=== PATIENT | female | born 1935 | race Caucasian/White ===

== ENCOUNTER 2018-10-30 00:14 | Inpatient (IN) ==
--- NOTE | 2018-10-30 04:44 | Internal Med History&Physical ---
<Orlando Montanez T - Last Filed: 10/30/18 06:04> Date of Encounter: 10/30/18 Time of Encounter: 04:42 Internal Medicine - H&P: HPI History of present illness: Ms. Tomlin is a 83 year old female presenting to [facility] ED with fall. She was changing her shoes yesterday morning when she fell off her breathing or pending side of her head [facility]. She did not lose consciousness or experience confusion. Patient endorses fever, chills/night sweats, vomiting 3 over the previous 2 days. Patient denies chest pain, palpitations, shortness of breath, pleuritic chest pain, abdominal pain, changes in stooling, changes in urination. At [facility] ED CBC showed elevated AST of 1083, elevated BALT of 604, alkaline phosphatase of 332, total bilirubin of 2.3. Urinalysis was negative for pathology. Flu swab was negative. Troponins were elevated at 0.130. EKG showed A. fib no ST changes CT abdomen/pelvis showed multiple tiny hypodensities in liver could be due to arterioportal shuntsMRI was recommended to exclude metastatic lesions. Colonic diverticulosis was also seen. CT head showed scalp soft tissue hematoma and laceration is no acute intracranial abnormality. CT of C-spine showed no acute cervical pathology. Vitals upon presentation were under 1.8F, pulse 117, respiratory rate 22, BP 155/83, O2 sat 95%. Lactic acid was 2.8. Patient has history of CVA, A. fib, cholecystectomy, appendectomy, GERD, hypertension, hyperlipidemia, lumbar spinal stenosis, total abdominal h ysterectomy, cholecystectomy. Patient is a nonsmoker and does not drink. Past Med Surg Social Fam HX - Past Medical History Medical history: atrial fibrillation, CVA - Past Surgical History Surgical History: appendectomy, cholecystectomy, hysterectomy Additional surgical history: lumpectomy,thrombectomy - Social History Smoking Status: Former smoker Alcohol use: none Drug use: none - Family History Mother History Unknown: Yes Internal Medicine - H&P: Meds Aspirin [Lo-Dose Aspirin EC] 81 mg PO DAILY 10/30/18 [History] Atorvastatin [Lipitor] 80 mg PO HS 10/30/18 [History] Losartan [Cozaar] 25 mg PO DAILY 10/30/18 [History] Magnesium Oxide [Magnesium] 400 mg PO DAILY 10/30/18 [History] Metoprolol XL (24 HR) Succ [Toprol XL] 50 mg PO DAILY 10/30/18 [History] Omeprazole [PriLOSEC] 20 mg PO DAILY 10/30/18 [History] RX: Diltiazem [Cardizem] 30 mg PO TID 10/30/18 [History] RX: Nitrofurantoin (BID) [Macrobid] 100 mg PO DAILY 10/30/18 [History] Timolol Maleate 0.5% 1 drop BOTH EYES BID 10/30/18 [History] Warfarin [Coumadin] 3 mg PO DAILY 10/30/18 [History] Allergy/AdvReac Type Severity Reaction Status Date / Time Sulfa (Sulfonamide Allergy Itching Verified 10/30/18 02:41 Antibiotics) All Systems PM: A 10-system review of systems was performed and is negative for pertinent findings except as documented above in the HPI. - Constitutional Constitutional: chills, fever(s), falls, lethargy, malaise, night sweats - Cardiovascular Cardiovascular ROS IM: no chest pain, no palpitations - Respiratory Respiratory: no cough, no dyspnea - Gastrointestinal Gastrointestinal: vomiting (3 times in the past few days), no abdominal pain, no constipation, no cramping, no diarrhea, no hematemesis, no hematochezia, no melena - Genitourinary Genitourinary: no dysuria, no urinary frequency, no urinary hesitancy, no urin maranda incontinence - Musculoskeletal Musculoskeletal ROS IM: no myalgias - Neurological Neurological ROS: no focal weakness, no headache(s) - Constitutional Vitals: Temp Pulse Resp BP Pulse Ox 100.3 F H 87 16 130/66 93 10/30/18 04:26 10/30/18 04:26 10/30/18 04:26 10/30/18 04:26 10/30/18 04:26 General appearance: Present: cooperative, A&O X 3, no acute distress, answers questions appropriately Exam: . - Head Head exam: Present: atraumatic, normal inspection - Expanded Head Exam Head exam expanded: Present: laceration (on left side of head) - Neck Neck exam general surgery: Present: supple, trachea midline - Respiratory Respiratory exam: Present: CTAB - Cardiovascular Cardiovascular exam: Present: irregular rhythm, +S1, +S2 Additional comments: Tachycardia with irregular rhythm. Telemetry shows A. fib. - GI/Abdominal GI/Abdominal exam: Present: normal bowel sounds, soft. Absent: distended, tenderness, no peritoneal signs - Extremities Exam Extremities exam: Present: warm, radial pulses palpable and symmetrical. Absent: tenderness - Neurological Exam Neurological exam: Present: alert, oriented X3, no focal deficits - Psychiatric Psychiatric exam: Present: normal affect, normal mood - Skin Skin exam: Present: dry, intact, warm - Assessment and plan (1) Acute hepatitis Current Visit: Yes Status: Acute Assessment and plan: 83-year-old female presenting with fall. Labs that [facility] showed elevated LFTs with AST of 1083, ALC of 604, alkaline phosphatase of 332, total bilirubin of 2.3. Considering infectious or drug-related hepatitis. - Ordered hepatic panel - Consult to GI (2) Sepsis Current Visit: Yes Status: Acute Assessment and plan: SIRS positive - R/O sepsis. Patient presented with pulse of 117, respiratory rate of 22, BP 155/83, and lactic acid 2.8. - Trend lactic acid. - White blood cell count was normal. Morning labs ordered continue to trend - Trending vitals Qualifiers: Sepsis type: sepsis due to unspecified organism Qualified Code(s): A41.9 - Sepsis, unspecified organism (3) Afib Current Visit: Yes Status: Acute Assessment and plan: Patient currently in A. fib, asymptomatic. - Continue home metoprolol, warfarin, Cardizem. - Consult cardiology for management. Qualifiers: Qualified Code(s): I48.91 - Unspecified atrial fibrillation (4) NSTEMI (non-ST elevated myocardial infarction) Current Visit: Yes Status: Acute Assessment and plan: She presents with elevated troponins negative EKG and A. fib. Considering an STEMI. - Consult cardiology. - BMP ordered. - Trend troponins. (5) DVT prophylaxis Current Visit: Yes Status: Acute Assessment and plan: Patient on warfarin. - Time Spent With Patient Total time spent is greater than 50% in coordination of care (as documented) at patient's floor/unit and/or counseling patient: <Sebastian Hudson - Last Filed: 10/30/18 06:51> Date of Encounter: 10/30/18 Internal Medicine - H&P: HPI History of present illness: Ms. Tomlin is a 83 year old female All Systems PM: A 10-system review of systems was performed and is negative for pertinent findings except as documented above in the HPI. - Constitutional Vitals: Temp Pulse Resp BP Pulse Ox 100.3 F H 87 16 130/66 93 10/30/18 04:26 10/30/18 04:26 10/30/18 04:26 10/30/18 04:26 10/30/18 04:26 Internal Med - H&P Results - Labs Labs: Cardiac Enzymes 10/30/18 Range/Units 05:38 Troponin I 0.13 H* (< 0.04) ng/mL - Time Spent With Patient Total time spent is greater than 50% in coordination of care (as documented) at patient's floor/unit and/or counseling patient: - Attending Attestation I examined this patient and my medical decision-making was reviewed with the Resident Physician. I agree with the documented findings, disposition and treatment plan as described except to the extent set forth below.
[2018-10-30] MEDS ORDERED: Acetaminophen 325 MG TABLET PO PRN (04:52)
[2018-10-30] MEDS ORDERED: Naloxone 0.4 MG/ML INJ IVP PRN (04:55)
[2018-10-30] MEDS: 0.9 % Sodium Chloride 1,000 ML IVC SCH ×2 (05:58→22:55)
[2018-10-30] MEDS: Metoprolol XL (24 HR) Succ 50 MG TAB.ER.24H PO SCH (05:58)
[2018-10-30 06:53] LABS: BUN/Creatinine Ratio 21 (6-26); Blood Urea Nitrogen 15 mg/dL (8-23); Calcium 8.6 mg/dL (8.6-10.3); Carbon Dioxide 19 mEq/L (23-29); Chloride 107 mEq/L (98-107); Glucose 152 mg/dL (70-105); Osmolality,Calculated 286 (280-300); Potassium 3.6 mEq/L (3.5-5.1); Sodium 136 mEq/L (136-145); eGFR For Non-African Americans > 60 (> 60)
[2018-10-30 07:34] LABS: Basophils % 0.1 %; Hemoglobin 11.4 g/dL (11.5-15.4); Immature Granulocytes % 0.6 % (0-4); Lymphocytes % 11.4 %; Mean Corpuscular HGB Conc 33.5 g/dL (31.6-35.5); Mean Corpuscular Hemoglobin 30.7 pg (28.0-33.3); Mean Corpuscular Volume 91.6 fL (83.0-100.0); Monocytes # 0.9 K/mcL (0.0-1.3); Monocytes % 10.1 %; Platelet Count 176 K/mcL (140-400); Red Blood Count 3.71 M/mcL (3.82-4.97); Red Cell Distribution Width 14.4 % (11.5-14.5); Segmented Neutrophils % 77.8 %
[2018-10-30 09:43] LABS: INR 3.5; Prothrombin Time 39.2 Seconds (9.4-12.1)
--- NOTE | 2018-10-30 10:22 | Cardiology Consult Note ---
<Jung Sarabia - Last Filed: 10/30/18 10:17> Date of Encounter: 10/30/18 Time of Encounter: 10:17 Assessment and Plan (1) Elevated troponin Current Visit: Yes Status: Acute Patient had elevated troponin 0.13 and 0.13. This is in the setting of sepsis, with fever secondary to acute hepatitis of unknown etiology ECG shows rate of 98, atrial fibrillation, without ST elevation, depression, no previous one to compare. Patient denies chest pain Patient has stress test [facility] but unclear when. Plan: echocardiogram, request cardiology records from [facility], asa, statin, bblocker likely this is demand ischemia 2nd to sepsis, infection. Patient has adynamic troponin and no chest pain. (2) Acute hepatitis Current Visit: Yes Status: Acute as per primary (3) Sepsis Current Visit: Yes Status: Acute as per primary Qualifiers: Sepsis type: sepsis due to unspecified organism Qualified Code(s): A41.9 - Sepsis, unspecified organism (4) Afib Current Visit: Yes Status: Acute chronic afib continue metoprolol and coumadin Qualifiers: Atrial fibrillation type: chronic Qualified Code(s): I48.2 - Chronic atrial fibrillation Discussion w patient/family: The assessment and plan as outlined above was discussed with the patient and/or family members who expressed understanding and agreement. All questions were answered. Thank you for involving us in the care of your patient. Please call with any questions. History of Present Illness Consult date: 10/30/18 Consult reason: Elevated troponin Chief complaint: Fall History of present illness: Ms. Tomlin is a 83 year old female with history of atrial fibrillation on Coumadin, CVA, hypertension, hyperlipidemia presents with chief complaint of fall. Patient was changing her seizure history and trying to sit on her bed when she had a mechanical fall, did not loose consciousness and hit her left scalp on the hardwood floor. She did not lose consciousness and denied chest pain, palpitations, shortness of breath, abdominal pain. She reports couple days before her fall she has had nausea, vomiting 3. This happened after her Ceftin gave her pink liquid for upset stomach but she is unclear what this was. At [facility] patient was found to have elevated AST and ALTs alkaline phosphatase 80 and bilirubin. Cardiology was consulted for elevated troponin. Patient denies history of coronary disease. She has had stress test and echocardiogram at [facility] which have been normal. She currently denies chest pain. Furthermore she had a CT abdomen pelvis which showed multiple tiny hypodensities in the liver. CT of the head showed a scalp soft tissue hematoma and laceration without any acute intracranial abnormality. Past Med Surg Social Fam HX - Past Medical History Medical history: atrial fibrillation, CVA - Past Surgical History Surgical History: appendectomy, cholecystectomy, hysterectomy Additional surgical history: lumpectomy,thrombectomy - Social History Smoking Status: Former smoker Alcohol use: none Drug use: none - Family History Mother History Unknown: Yes Medications and Allergies Aspirin [Lo-Dose Aspirin EC] 81 mg PO DAILY 10/30/18 [History] Atorvastatin [Lipitor] 80 mg PO HS 10/30/18 [History] Losartan [Cozaar] 25 mg PO DAILY 10/30/18 [History] Magnesium Oxide [Magnesium] 400 mg PO DAILY 10/30/18 [History] Metoprolol XL (24 HR) Succ [Toprol XL] 50 mg PO DAILY 10/30/18 [History] Omeprazole [PriLOSEC] 20 mg PO DAILY 10/30/18 [History] RX: Diltiazem [Cardizem] 30 mg PO TID 10/30/18 [History] RX: Nitrofurantoin (BID) [Macrobid] 100 mg PO DAILY 10/30/18 [History] Timolol Maleate 0.5% 1 drop BOTH EYES BID 10/30/18 [History] Warfarin [Coumadin] 3 mg PO DAILY 10/30/18 [History] Allergy/AdvReac Type Severity Reaction Status Date / Time Sulfa (Sulfonamide Allergy Itching Verified 10/30/18 02:41 Antibiotics) All Systems Review: The remainder of the systems were reviewed and are negative Review of Systems: Constitutional: Reports fever, chills HEENT: Reports headache, trauma, denies blurry vision, eye discharge, ear pain, ear discharge neck pain, sore throat, rhinorrhea Heart: Denies chest pain palpitations, LE edema Lungs: Denies shortness of breath cough Abdomen: Reports abdominal pain nausea vomiting denies diarrhea MSK: Denies back pain, joint pain and reports Kidney: Denies dysuria, hematuria Skin: Denies rash, ulcers Neuro: Denies numbness and tingling Psych: denies anxiety, depression Physical Examination Vital Signs, Last 4 Hours Temp Pulse Resp BP Pulse Ox 10/30/18 07:29 99.1 F 112 17 117/73 94 General: Conversant, No Apparent Distress HEENT: Atraumatic, Normocephaly, Mucus Membranes Moist Neck: No JVD, Normal carotid pulses Cardiac: Other (Irregular rhythm) Lungs: Normal Breath Sounds, No Wheeze, Rales, Rhonchi Neuro: Alert and responsive, No focal deficits noted Abdomen: Soft, Non-Tender Skin: No rashes noted on visualized skin Musculoskeletal: No Chest Wall Tenderness Extremities: No Clubbing, No Cyanosis, No Edema, Normal Pulses Results 10/30/18 06:36 10/30/18 05:38 Lab Results 10/30/18 10/30/18 10/30/18 05:38 05:38 05:38 WBC Hgb Hct Plt Count INR Sodium 136 Potassium 3.6 Chloride 107 Carbon Dioxide 19 L BUN 15 Creatinine 0.72 Glucose 152 H Calcium 8.6 Troponin I 0.13 H* B-Natriuretic Peptide 455 H 10/30/18 10/30/18 10/30/18 06:36 09:20 09:20 WBC 9.0 Hgb 11.4 L Hct 34.0 L Plt Count 176 INR 3.5 Sodium Potassium Chloride Carbon Dioxide BUN Creatinine Glucose Calcium Troponin I 0.13 H* B-Natriuretic Peptide Consult Discharge Plan - Plan Referrals: NONE,PCP [Primary Care Provider] - <Antonio Doll - Last Filed: 10/30/18 12:46> Date of Encounter: 10/30/18 - Attending Attestation I examined this patient and my medical decision-making was reviewed with the Resident Physician. I agree with the documented findings, disposition and treatment plan as described except to the extent set forth below. Mildy abormal troponin in setting of possible infection. Doubt ACS. Would check echo with further w/u based on results. Assessment and Plan Discussion w patient/family: The assessment and plan as outlined above was discussed with the patient and/or family members who expressed understanding and agreement. All questions were answered. Thank you for involving us in the care of your patient. Please call with any questions. History of Present Illness History of present illness: Ms. Tomlin is a 83 year old female All Systems Review: The remainder of the systems were reviewed and are negative Physical Examination Vital Signs, Last 4 Hours Temp Pulse Resp BP Pulse Ox 10/30/18 11:29 98.9 F 75 19 116/73 95 Results 10/30/18 06:36 10/30/18 05:38 Lab Results 10/30/18 10/30/18 10/30/18 05:38 05:38 05:38 WBC Hgb Hct Plt Count INR Sodium 136 Potassium 3.6 Chloride 107 Carbon Dioxide 19 L BUN 15 Creatinine 0.72 Glucose 152 H Calcium 8.6 Troponin I 0.13 H* B-Natriuretic Peptide 455 H 10/30/18 10/30/18 10/30/18 06:36 09:20 09:20 WBC 9.0 Hgb 11.4 L Hct 34.0 L Plt Count 176 INR 3.5 Sodium Potassium Chloride Carbon Dioxide BUN Creatinine Glucose Calcium Troponin I 0.13 H* B-Natriuretic Peptide
[2018-10-30 10:32] LABS: Hepatitis A Antibody IgM Nonreactive (Nonreactive); Hepatitis B Core IgM Nonreactive (Nonreactive); Hepatitis B Surface Antigen Nonreactive (Nonreactive); Hepatitis C Virus Antibody Nonreactive (Nonreactive)
--- NOTE | 2018-10-30 14:27 | Gastroenterology Consult Note ---
<Andreina Mike - Last Filed: 10/30/18 14:22> Date of Encounter: 10/30/18 Time of Encounter: 09:50 - Time Spent With Patient Total time spent is greater than 50% in coordination of care (as documented) at patient's floor/unit and/or counseling patient: GI History of Present Illness - Data of Consult Patient: new to practice Consult date: 10/30/18 Requesting Physician: Sebastian Hudson MD - Consult Narrative Reason for consult: elevated lfts History of present illness: Ms. Tomlin is a 83 year old female With past medical history of A. fib and CVA, cholecystectomy, appendectomy, GERD, hypertension, hyperlipidemia, lumbar spinal stenosis, total abdominal hysterectomy. She presented to [facility] ED with fall. Patient endorses fever, chills/night sweats, vomiting 3 over the previous 2 days. Patient denies chest pain, palpitations, shortness of breath, pleuritic chest pain, abdominal pain, changes in stooling, changes in urination. At [facility] ED CBC showed elevated AST of 1083, elevated BALT of 604, alkaline phosphatase of 332, total bilirubin of 2.3. Urinalysis was negative for pathology. Flu swab was negative. Troponins were elevated at 0.130. EKG showed A. fib no ST changes. CT abdomen/pelvis showed multiple tiny hypodensities in liver could be due to arterioportal shunts-MRI was recommended to exclude metastatic lesions. Colonic diverticulosis was also seen. CT head showed scalp soft tissue hematoma and laceration is no acute intracranial abnormality. CT of C-spine showed no acute cervical pathology. Lactic acid was 2.8. Patient is a nonsmoker and does not drink. She denies any personal or family history of liver diseaes. She denies and diarrhea, bloody or black stools. She does admit to chronic constipation. Assessments: 1. transaminitis 2. liver lesion 3. sepsis 4. fall at home Plan: Pt presented with nausea, vomiting fever and fall at home. Lactic acid was 2.8, liver enzymes were elevated. CT abdomen showed multiple tiny hypodensities in liver could be due to arterioportal shunts. Due to her infectious presentation she needs MrI to rule out cholangitis/liver abcess. Past Med Surg Social Fam HX - Past Medical History Medical history: atrial fibrillation, CVA - Past Surgical History Surgical History: appendectomy, cholecystectomy, hysterectomy Additional surgical history: lumpectomy,thrombectomy - Social History Smoking Status: Former smoker Alcohol use: none Drug use: none - Family History Mother History Unknown: Yes Review of Systems: GI: as per [place] GENERAL: fever and chills EYES: denies yellow discoloration ENT: denies pain with swallowing or difficulty swallowing CARDIO: denies chest pain, palpitations RESP: No Shortness of breath with exertion : denies change in color of urine NEURO: weakness HEME: Denies any bruising MS: denies joint pain, joint swelling or back pain. DERM: denies rash or itching PSYCH: Denies history of anxiety or depression - Constitutional Vitals: Temp Pulse Resp BP Pulse Ox 98.9 F 75 19 116/73 95 10/30/18 11:29 10/30/18 11:29 10/30/18 11:29 10/30/18 11:29 10/30/18 11:29 Exam: CONSTITUTIONAL:alert, no acute distress.HEAD:normocephalic.EYES:no jaundice.NECK:no obvious swelling.HEART:regular rate and rhythm, no murmurs.LUNGS:bilateral good air entry.ABDOMEN:non distended, soft, tender epigastric area, no organomegaly.RECTAL EXAM:Deferred.EXTREMITIES:no clubbing, cyanosis or edema.SKIN:no stigmata of chronic liver disease.NEUROLOGIC:no obvious focal defect. Results - Labs CBC & Chem 7: 10/30/18 06:36 10/30/18 05:38 Labs: Last Result Calcium 8.6 mg/dL (8.6-10.3) 10/30/18 05:38 Troponin I 0.13 ng/mL (< 0.04) H* 10/30/18 09:20 Entire Visit Hgb 11.4 g/dL (11.5-15.4) L 10/30/18 06:36 Hct 34.0 % (35.3-44.9) L 10/30/18 06:36 PT 39.2 Seconds (9.4-12.1) H 10/30/18 09:20 - ABG ABG results: PT/INR, D-dimer PT 39.2 Seconds (9.4-12.1) H 10/30/18 09:20 - Impressions Impressions Chest X-Ray 10/30/18 05:48 IMPRESSION: Left basilar atelectasis. D/ / Sara Ladd MD / Sara Ladd MD Interpreting Provider: Sara Ladd MD Consult Discharge Plan - Plan Referrals: NONE,PCP [Primary Care Provider] - <Norma Perez - Last Filed: 10/30/18 20:56> Date of Encounter: 10/30/18 Time of Encounter: 18:00 - Time Spent With Patient Total time spent is greater than 50% in coordination of care (as documented) at patient's floor/unit and/or counseling patient: GI History of Present Illness - Data of Consult Requesting Physician: Sebastian Hudson MD - Consult Narrative History of present illness: Ms. Tomlin is a 83 year old female - Constitutional Vitals: Temp Pulse Resp BP Pulse Ox 98.5 F 72 16 98/60 94 10/30/18 20:52 10/30/18 20:52 10/30/18 20:52 10/30/18 20:52 10/30/18 20:52 Results - Labs CBC & Chem 7: 10/30/18 06:36 10/30/18 05:38 Labs: Last Result Calcium 8.6 mg/dL (8.6-10.3) 10/30/18 05:38 Troponin I 0.07 ng/mL (< 0.04) H* 10/30/18 17:03 Entire Visit Hgb 11.4 g/dL (11.5-15.4) L 10/30/18 06:36 Hct 34.0 % (35.3-44.9) L 10/30/18 06:36 PT 39.2 Seconds (9.4-12.1) H 10/30/18 09:20 Total Bilirubin 1.0 mg/dL (0.3-1.0) 10/30/18 15:02 AST 352 Units/L (13-39) H 10/30/18 15:02 ALT 367 Units/L (7-52) H 10/30/18 15:02 Amylase 23 Units/L (29-103) L 10/30/18 15:02 Lipase 66 Units/L (11-82) 10/30/18 15:02 - ABG ABG results: PT/INR, D-dimer PT 39.2 Seconds (9.4-12.1) H 10/30/18 09:20 - Impressions Impressions Chest X-Ray 10/30/18 05:48 IMPRESSION: Left basilar atelectasis. D/ / Sara Ladd MD / Sara Ladd MD Interpreting Provider: Sara Ladd MD Echocardiogram 10/30/18 05:49 Impressions: LVEF 50-55%. Indeterminate diastolic function. RV is normal in size. Function is low normal. Severe bi-atrial enlargement. Mild mitral regurgitation. Mild-moderate aortic regurgitation. Mild-moderate tricuspid regurgitation. Mild pulmonary hypertension. Proximal descending thoracic aorta not well visualized. Left Ventricular Wall Motion: Rest Echo Findings All wall segments showed normal motion. Findings: Study Quality * Technically adequate exam. ECG Findings * Atrial fibrillation. Left Ventricle * Normal LV chamber size, wall thickness and function. * LVEF 50-55%. * Indeterminate diastolic function. Right Ventricle * RV is normal in size. Function is low normal. Left Atrium * Severely dilated left atrium. Right Atrium * Severely dilated right atrium. Mitral Valve * No mitral stenosis. * Mild mitral annular calcification * Mild mitral regurgitation. Aortic Valve * Mild-moderate aortic regurgitation. * Trileaflet aortic valve. * Mildly thickened aortic valve leaflets. Tricuspid Valve * Normal tricuspid valve structure. * Mild-moderate tricuspid regurgitation. * Estimated RA pressure is 3 mmHg. * Estimated RVSP is 46 mmHg. * Mild pulmonary hypertension. Pulmonic Valve * Pulmonic valve is not well visualized. * No pulmonic stenosis. * Trace pulmonic regurgitation. Pulmonary Artery * Pulmonary artery not well visualized. Aorta * Normally sized aortic root. * Proximal descending thoracic aorta not well visualized. Pericardium * There is no pericardial effusion present. Interatrial Septum * No evidence of PFO by color Doppler. IVC * Normal IVC dimensions and inspiratory collapse. Abdomen MRI 10/30/18 09:34 IMPRESSION: Severe extrahepatic and moderate intrahepatic biliary ductal dilation due to choledocholithiasis. Multiple calculi are noted as described above. Edema surrounding the pancreas, which can be seen in the setting of pancreatitis. Correlate with lipase. The findings were sent to the Radiology Results Communication Center at 2:23 pm on 10/30/2018to be communicated to a licensed caregiver. D/ / Ralph Ramon MD / Ralph Ramon MD Interpreting Provider: Ralph Ramon MD - Attending Attestation I have personally performed a face to face evaluation on this patient. I have reviewed and agree with the care plan. History and Exam by me shows: Pt seen. o/E AA, mild upper tanderness tanderness. A: Pt with CBD stones ( MRCP with CBD dilation with many stones) with fever r/o cholangitis. Rec: IV abs, ERCP am
[2018-10-30 14:31] LABS: Alanine Aminotransferase 459 Units/L (7-52); Albumin 3.7 g/dL (3.5-5.7); Alkaline Phosphatase 258 Units/L (34-104); Aspartate Amino Transferase 591 Units/L (13-39); Bilirubin,Direct 0.8 mg/dL (0.0-0.2); Bilirubin,Indirect 0.9 mg/dL (0.0-1.2); Bilirubin,Total 1.7 mg/dL (0.3-1.0); Total Protein 6.1 g/dL (6.4-8.9)
--- NOTE | 2018-10-30 14:31 | Internal Med Progress Note ---
Hospitalist Progress Note - Encounter Date of Encounter: 10/30/18 Time of Encounter: 14:21 - Subjective Interval History: Beckman denies vomiting abdominal pain diarrhea headache dizziness loss of consciousness chest pain short of breath. She had intermittent fever, chills and nausea. Daughter at bedside. Review the lab with pending LFTs at [facility] but was elevated at [facility]. - Exam Vitals: Temp Pulse Resp BP Pulse Ox 98.9 F 75 19 116/73 95 10/30/18 11:29 10/30/18 11:29 10/30/18 11:29 10/30/18 11:29 10/30/18 11:29 Exam: General appearance: No acute distress, A&O X 3 Head exam: Laceration on left side of head Eye exam: EOMI, PERRLA ENT exam: Moist oral mucosa Neck nontender, supple Respiratory exam: Clear to auscultation bilaterally Cardiovascular exam: Normal rate and irregular rhythm, no systolic murmur Abdominal exam: Soft, nontender, nondistended ,positive bowel sounds Extremities exam: No calf tenderness, no pedal edema Present: Skin- warm, dry, intact Neurological exam: CN II-XII intact, no focal deficits. No facial droop. Normal speech. . - Assessment and Plan (1) Acute hepatitis Current Visit: Yes Status: Acute Assessment and Plan: 83-year-old female presenting with fall. Labs that [facility] ED showed elevated LFTs with AST of 1083, ALC of 604, alkaline phosphatase of 332, total bilirubin of 2.3. Considering infectious or drug-related hepatitis. - Negative hepatic panel - Onboard GI specialist CT abdomen/pelvis showed multiple tiny hypodensities in liver could be due to arterioportal shuntsMRI was recommended to exclude metastatic lesions therefore MRI ordered but no report available. Avoid Tylenol Addendum -Severe extrahepatic and moderate intrahepatic biliary ductal dilation due to choledocholithiasis. Multiple calculi are noted as described above. Edema surrounding the pancreas, which can be seen in the setting of pancreatitis. Correlate with lipase. Stat amylase and Lipase and LFT ordered. Will also inform GI specialist about the finding. Will consult general surgeon after discussing with GI specialist if needed (2) Sepsis Current Visit: Yes Status: Acute Assessment and Plan: SIRS positive - R/O sepsis. Patient presented with pulse of 117, respiratory rate of 22, BP 155/83, and lactic acid 2.8. Patient had fever, chills at home Repeat lactic acid normal. White blood cell count was normal. Zosyn empiric antibiotic started. Blood culture with no growth yet (3) Afib Current Visit: Yes Status: Acute Assessment and Plan: Patient currently in A. fib, asymptomatic. - Continue home metoprolol, warfarin, Cardizem. INR monitoring with the help of pharmacy. - Onboard cardiology. (4) NSTEMI (non-ST elevated myocardial infarction) Current Visit: Yes Status: Acute Assessment and Plan: She presents with elevated troponins negative EKG and A. fib. Considering NSTEMI or possibility of demand ischemia secondary to sepsis. Consulted cardiology. (5) DVT prophylaxis Current Visit: Yes Status: Acute Assessment and Plan: Patient on warfarin with supratherapeutic INR. Hold warfarin and Pharmacy consultation. SCDs - Time Spent with Patient Total time spent is greater than 50% in coordination of care (as documented) at patient's floor/unit and/or counseling patient: 25 - 35 minutes Plan of Care Discussed with: patient Internal Medicine: Result - Labs CBC & Chem 7: 10/30/18 06:36 10/30/18 05:38 Labs: Short CBC 10/30/18 Range/Units 06:36 WBC 9.0 (4.3-11.1) K/mcL Hgb 11.4 L (11.5-15.4) g/dL Hct 34.0 L (35.3-44.9) % Plt Count 176 (140-400) K/mcL Neutrophils # 7.0 (1.6-8.9) K/mcL BMP 10/30/18 05:38 Sodium 136 Potassium 3.6 Chloride 107 Carbon Dioxide 19 L BUN 15 Creatinine 0.72 Glucose 152 H Calcium 8.6 Cardiac Enzymes 10/30/18 10/30/18 Range/Units 05:38 09:20 Troponin I 0.13 H* 0.13 H* (< 0.04) ng/mL - ABG Interpretation ABG results: PT/INR, D-dimer PT 39.2 Seconds (9.4-12.1) H 10/30/18 09:20 - Impressions Impressions Chest X-Ray 10/30/18 05:48 IMPRESSION: Left basilar atelectasis. D/ / Sara Ladd MD / Sara Ladd MD Interpreting Provider: Sara Ladd MD Consult Discharge Plan - Plan Referrals: NONE,PCP [Primary Care Provider] - (2) Sepsis Qualifiers: Sepsis type: sepsis due to unspecified organism Qualified Code(s): A41.9 - Sepsis, unspecified organism (3) Afib Qualifiers: Atrial fibrillation type: chronic Qualified Code(s): I48.2 - Chronic atrial fibrillation
[2018-10-30 14:32] LABS: Albumin/Globulin Ratio 1.5 (1.1-2.2); Globulin 2.4 g/dL (2.4-3.5)
[2018-10-30 15:46] LABS: Albumin 3.6 g/dL (3.5-5.7); Albumin/Globulin Ratio 1.5 (1.1-2.2); Bilirubin,Direct 0.4 mg/dL (0.0-0.2); Bilirubin,Indirect 0.6 mg/dL (0.0-1.2); Globulin 2.4 g/dL (2.4-3.5)
[2018-10-30] MEDS ORDERED: Warfarin perPT PO PRN (18:00)
[2018-10-30] MEDS ORDERED: *HR* Warfarin 3 MG TABLET PO SCH (18:00)
[2018-10-30] MEDS: Piperacillin/Tazobactam 3.375 GM in 0.9 % Sodium Chloride Mini Bag 100 ML IVPB SCH (18:55)
[2018-10-30] MEDS ORDERED: *HR* Phytonadione 10 MG/ML AMPUL SQ ONE (21:04)
[2018-10-30] MEDS ORDERED: 0.9 % Sodium Chloride 250 ML ONE (23:44)
[2018-10-31] MEDS: 0.9 % Sodium Chloride 1,000 ML IVC SCH (00:48)
[2018-10-31] MEDS: Piperacillin/Tazobactam 3.375 GM in 0.9 % Sodium Chloride Mini Bag 100 ML IVPB SCH ×3 (00:48→17:45)
[2018-10-31 06:15] LABS: Basophils % 0.4 %; Eosinophils # 0.2 K/mcL (0.0-0.6); Eosinophils % 2.8 %; Hematocrit 31.2 % (35.3-44.9); Hemoglobin 10.1 g/dL (11.5-15.4); Immature Granulocytes % 0.4 % (0-4); Lymphocytes # 0.9 K/mcL (0.6-4.6); Lymphocytes % 16.9 %; Mean Corpuscular HGB Conc 32.4 g/dL (31.6-35.5); Mean Corpuscular Hemoglobin 30.6 pg (28.0-33.3); Mean Corpuscular Volume 94.5 fL (83.0-100.0); Mean Platelet Volume 10.8 fL (9.4-12.4); Monocytes # 0.6 K/mcL (0.0-1.3); Monocytes % 10.8 %; Neutrophils # 3.6 K/mcL (1.6-8.9); Platelet Count 159 K/mcL (140-400); Red Cell Distribution Width 14.8 % (11.5-14.5); Segmented Neutrophils % 68.7 %
[2018-10-31 06:22] LABS: INR 1.9; Prothrombin Time 21.6 Seconds (9.4-12.1)
[2018-10-31 06:35] LABS: Alanine Aminotransferase 255 Units/L (7-52); Albumin 3.5 g/dL (3.5-5.7); Albumin/Globulin Ratio 1.5 (1.1-2.2); Alkaline Phosphatase 186 Units/L (34-104); Aspartate Amino Transferase 189 Units/L (13-39); BUN/Creatinine Ratio 19 (6-26); Bilirubin,Total 0.9 mg/dL (0.3-1.0); Blood Urea Nitrogen 12 mg/dL (8-23); Calcium 8.7 mg/dL (8.6-10.3); Carbon Dioxide 25 mEq/L (23-29); Chloride 111 mEq/L (98-107); Globulin 2.3 g/dL (2.4-3.5); Glucose 118 mg/dL (70-105); Osmolality,Calculated 293 (280-300); Potassium 3.4 mEq/L (3.5-5.1); Sodium 141 mEq/L (136-145); Total Protein 5.8 g/dL (6.4-8.9); eGFR For Non-African Americans > 60 (> 60)
[2018-10-31] MEDS: Metoprolol XL (24 HR) Succ 50 MG TAB.ER.24H PO SCH (08:21)
--- NOTE | 2018-10-31 09:54 | Cardiology Progress Note ---
Date of Encounter: 10/31/18 Time of Encounter: 09:30 Assessment and Plan (1) Elevated troponin Current Visit: Yes Status: Acute Patient had elevated troponin 0.13 and 0.13. This is in the setting of sepsis, with fever secondary to acute hepatitis of unknown etiology Doubt ACS; presentation more consistent with demand ischemia given adynamic troponin elevation and lack of chest pain symptoms. ECG shows rate of 98, atrial fibrillation, without ST elevation, depression, no previous one to compare. Patient denies chest pain Patient had normal stress test at [facility] within the past 1-2 years. TTE shows preserved LVEF, 50-55% with normal wall motion. Continue conservative medical therapy. No further intervention is warranted from CV standpoint. Cardiology will sign-off; will coordinate outpatient follow-up (2) Acute hepatitis Current Visit: Yes Status: Acute as per primary (3) Afib Current Visit: Yes Status: Acute Hx of persistent afib, diagnosed in the setting of CVA ~2 years ago. Anticoagulated on Coumadin, follows with [facility] Coumadin clinic. HR controlled, continue home medications including CCB and BB Qualifiers: Atrial fibrillation type: chronic Qualified Code(s): I48.2 - Chronic atrial fibrillation (4) Sepsis Current Visit: Yes Status: Acute as per primary Qualifiers: Sepsis type: sepsis due to unspecified organism Qualified Code(s): A41.9 - Sepsis, unspecified organism Discussion w patient/family: The assessment and plan as outlined above was discussed with the patient and/or family members who expressed understanding and agreement. All questions were answered. Thank you for involving us in the care of your patient. Please call with any questions. The patient will be discussed and reviewed with Dr. Antonio Doll; changes to be made accordingly. Subjective Principal diagnosis: elevated troponin, sepsis Interval history: Seen and examined. No chest pain described. Family at bedside, reports will have EGD with Dr. Perez today due to "gravel" in bile duct. Objective Vital Signs, Last 4 Hours Temp Pulse Resp BP Pulse Ox 10/31/18 07:53 98.8 F 85 16 152/89 91 General: Conversant HEENT: Atraumatic, Normocephaly Neck: No JVD Cardiac: Other (irregularly irregular) Lungs: Other (Wheezes noted throughout) Neuro: Alert and responsive Abdomen: Soft Skin: No rashes noted on visualized skin Musculoskeletal: No Chest Wall Tenderness Extremities: No Edema, Normal Pulses Results 10/31/18 06:00 10/31/18 06:00 Lab Results 10/30/18 10/30/18 10/30/18 05:38 09:20 15:02 WBC Hgb Hct Plt Count INR Sodium Potassium Chloride Carbon Dioxide BUN Creatinine Glucose Calcium Total Bilirubin 1.7 H 1.0 AST 591 H 352 H ALT 459 H 367 H Alkaline Phosphatase 258 H 231 H Troponin I 0.13 H* Amylase 23 L Lipase 66 10/30/18 10/31/18 10/31/18 17:03 06:00 06:00 WBC 5.3 Hgb 10.1 L Hct 31.2 L Plt Count 159 INR Sodium 141 Potassium 3.4 L Chloride 111 H Carbon Dioxide 25 BUN 12 Creatinine 0.64 Glucose 118 H Calcium 8.7 Total Bilirubin 0.9 AST 189 H ALT 255 H Alkaline Phosphatase 186 H Troponin I 0.07 H* Amylase Lipase 10/31/18 06:00 WBC Hgb Hct Plt Count INR 1.9 Sodium Potassium Chloride Carbon Dioxide BUN Creatinine Glucose Calcium Total Bilirubin AST ALT Alkaline Phosphatase Troponin I Amylase Lipase Active Medications Diltiazem HCl (Cardizem) 30 mg PO Q8H COUNT INCLUDES THE [facility] Stop: 05/01/19 05:01 Last Admin: 10/31/18 06:21 Dose: 30 mg Piperacillin Sod/Tazobactam (Sod 3.375 gm/ Sodium Chloride) 100 mls @ 25 mls/hr IVPB Q8HR COUNT INCLUDES THE [facility] Stop: 05/01/19 16:01 Last Admin: 10/31/18 08:21 Dose: 25 mls/hr Metoprolol Succinate (Toprol Xl) 50 mg PO DAILY SAYRA Stop: 05/01/19 04:53 Last Admin: 10/31/18 08:21 Dose: 50 mg Naloxone HCl (Narcan) 0.4 mg IVP Q2MIN PRN PRN Reason: SEE COMMENTS Stop: 05/01/19 04:56 Omeprazole (Prilosec) 20 mg PO 0630 SAYRA; Protocol Stop: 05/01/19 06:31 Last Admin: 10/31/18 06:21 Dose: 20 mg Warfarin Sodium (Coumadin Perpt) 1 each PO DAILY@1800 PRN PRN Reason: SEE COMMENTS Stop: 05/01/19 18:01 - Imaging and Cardiology Echo: report reviewed Other Results: 12 hour tele: avg HR=70 afib. - EKG Interpretation EKG results cardiology: personally reviewed Consult Discharge Plan - Plan Referrals: NONE,PCP [Primary Care Provider] -
[2018-10-31] MEDS ORDERED: Furosemide 40 MG/4 ML VIAL IVP ONE (13:32)
--- NOTE | 2018-10-31 13:34 | Internal Med Progress Note ---
Hospitalist Progress Note - Encounter Date of Encounter: 10/31/18 Time of Encounter: 13:33 - Subjective Interval History: Patient complaint of shortness of breath with heaviness in the chest and cough. Daughter at bedside. Complaint of nausea, chest heaviness, shortness of breath but denies headache dizziness abdominal pain urinary or bowel complaint. Review the lab with trending down LFTs - Exam Vitals: Temp Pulse Resp BP Pulse Ox 99.2 F 85 16 175/75 90 10/31/18 11:33 10/31/18 11:33 10/31/18 11:33 10/31/18 11:33 10/31/18 11:33 Exam: General appearance: No acute distress, A&O X 3. Nasal cannula oxygen of 4 L Head exam: Laceration on left side of head-healing Eye exam: EOMI, PERRLA ENT exam: Moist oral mucosa Neck nontender, supple Respiratory exam: Crepitation bilaterally. Cardiovascular exam: Normal rate and irregular rhythm, no systolic murmur Abdominal exam: Soft, nontender, nondistended ,positive bowel sounds Extremities exam: No calf tenderness, no pedal edema Present: Skin- warm, dry, intact Neurological exam: CN II-XII intact, no focal deficits. No facial droop. Normal speech. . - Assessment and Plan (1) Shortness of breath Current Visit: Yes Status: Acute Assessment and Plan: Patient had chest heaviness, sudden onset of chest pain with cough. Patient also had tachycardia tachypnea with hypoxia. Therefore increase oxygen level 4 L by nasal cannula. A stat troponin, CPK, EKG, chest x-ray, d-dimer and BNP ordered. Lung with crepitation. A stat chest x-ray with congestion. Lasix 40 mg IV stat ordered. Stop IV fluid. Echocardiogram EF 50-55% with severe biatrial enlargement. Will review the test report and make further decision. family wanted to change CODE STATUS and now patient is full code. (2) Acute hepatitis Current Visit: Yes Status: Acute Assessment and Plan: 83-year-old female presenting with fall. Labs that [facility] showed elevated LFTs with AST of 1083, ALC of 604, alkaline phosphatase of 332, total bilirubin of 2.3. Considering infectious or drug-related hepatitis. - Negative hepatic panel - Onboard GI specialist CT abdomen/pelvis showed multiple tiny hypodensities in liver could be due to arterioportal shuntsMRI was recommended to exclude metastatic lesions therefore MRI ordered but no report available. Avoid Tylenol MRI abdomen -Severe extrahepatic and moderate intrahepatic biliary ductal dilation due to choledocholithiasis. Multiple calculi are noted as described above. Edema surrounding the pancreas, which can be seen in the setting of pancreatitis. Lipase normal therefore less likely pancreatitis 10/31 2018 Trending down LFTs GI on board and plan for upper GI endoscope tomorrow. Will keep patient nothing by mouth after midnight. (3) Sepsis Current Visit: Yes Status: Acute Assessment and Plan: SIRS positive - R/O sepsis. Patient presented with pulse of 117, respiratory rate of 22, BP 155/83, and lactic acid 2.8. Patient had fever, chills at home Repeat lactic acid normal. White blood cell count was normal. Zosyn empiric antibiotic started. Blood culture with no growth yet (4) Afib Current Visit: Yes Status: Acute Assessment and Plan: Patient currently in A. fib, asymptomatic. - Continue home metoprolol, warfarin, Cardizem. INR monitoring with the help of pharmacy. - Onboard cardiology. (5) NSTEMI (non-ST elevated myocardial infarction) Current Visit: Yes Status: Acute Assessment and Plan: She presents with elevated troponins negative EKG and A. fib. Considering NSTEMI or possibility of demand ischemia secondary to sepsis. Ongoing cardiology and does not appreciate cardiac event and signed off. (6) DVT prophylaxis Current Visit: Yes Status: Acute Assessment and Plan: Patient on warfarin . Pharmacy consultation. SCDs - Time Spent with Patient Total time spent is greater than 50% in coordination of care (as documented) at patient's floor/unit and/or counseling patient: Greater than 35 minutes Plan of Care Discussed with: patient (Spent almost 40 minute inpatient care and is stabilizing acutely along with communication with patient and family and nursing staff) Internal Medicine: Result - Labs CBC & Chem 7: 10/31/18 06:00 10/31/18 06:00 Labs: Short CBC 10/31/18 Range/Units 06:00 WBC 5.3 (4.3-11.1) K/mcL Hgb 10.1 L (11.5-15.4) g/dL Hct 31.2 L (35.3-44.9) % Plt Count 159 (140-400) K/mcL Neutrophils # 3.6 (1.6-8.9) K/mcL BMP 10/31/18 06:00 Sodium 141 Potassium 3.4 L Chloride 111 H Carbon Dioxide 25 BUN 12 Creatinine 0.64 Glucose 118 H Calcium 8.7 Cardiac Enzymes 10/30/18 Range/Units 17:03 Troponin I 0.07 H* (< 0.04) ng/mL Liver Function 10/30/18 10/30/18 10/31/18 Range/Units 05:38 15:02 06:00 Total Bilirubin 1.7 H 1.0 0.9 (0.3-1.0) mg/dL Direct Bilirubin 0.8 H 0.4 H (0.0-0.2) mg/dL AST 591 H 352 H 189 H (13-39) Units/L ALT 459 H 367 H 255 H (7-52) Units/L Alkaline Phosphatase 258 H 231 H 186 H (34-104) Units/L Albumin 3.7 3.6 3.5 (3.5-5.7) g/dL - ABG Interpretation ABG results: PT/INR, D-dimer PT 21.6 Seconds (9.4-12.1) H 10/31/18 06:00 - Impressions Impressions Echocardiogram 10/30/18 05:49 Impressions: LVEF 50-55%. Indeterminate diastolic function. RV is normal in size. Function is low normal. Severe bi-atrial enlargement. Mild mitral regurgitation. Mild-moderate aortic regurgitation. Mild-moderate tricuspid regurgitation. Mild pulmonary hypertension. Proximal descending thoracic aorta not well visualized. Left Ventricular Wall Motion: Rest Echo Findings All wall segments showed normal motion. Findings: Study Quality * Technically adequate exam. ECG Findings * Atrial fibrillation. Left Ventricle * Normal LV chamber size, wall thickness and function. * LVEF 50-55%. * Indeterminate diastolic function. Right Ventricle * RV is normal in size. Function is low normal. Left Atrium * Severely dilated left atrium. Right Atrium * Severely dilated right atrium. Mitral Valve * No mitral stenosis. * Mild mitral annular calcification * Mild mitral regurgitation. Aortic Valve * Mild-moderate aortic regurgitation. * Trileaflet aortic valve. * Mildly thickened aortic valve leaflets. Tricuspid Valve * Normal tricuspid valve structure. * Mild-moderate tricuspid regurgitation. * Estimated RA pressure is 3 mmHg. * Estimated RVSP is 46 mmHg. * Mild pulmonary hypertension. Pulmonic Valve * Pulmonic valve is not well visualized. * No pulmonic stenosis. * Trace pulmonic regurgitation. Pulmonary Artery * Pulmonary artery not well visualized. Aorta * Normally sized aortic root. * Proximal descending thoracic aorta not well visualized. Pericardium * There is no pericardial effusion present. Interatrial Septum * No evidence of PFO by color Doppler. IVC * Normal IVC dimensions and inspiratory collapse. Abdomen MRI 10/30/18 09:34 IMPRESSION: Severe extrahepatic and moderate intrahepatic biliary ductal dilation due to choledocholithiasis. Multiple calculi are noted as described above. Edema surrounding the pancreas, which can be seen in the setting of pancreatitis. Correlate with lipase. The findings were sent to the Radiology Results Communication Center at 2:23 pm on 10/30/2018to be communicated to a licensed caregiver. D/ / Ralph Ramon MD / Ralph Ramon MD Interpreting Provider: Ralph Raomn MD Chest X-Ray 10/31/18 12:38 IMPRESSION: 1. Findings typical of congestive heart failure; correlate with presenting history and findings 2. Calcific atherosclerosis aorta. 3. Cardiomegaly. D/ / Ryder Guerrero / Ryder Guerrero Interpreting Provider: Ryder Guerrero Consult Discharge Plan - Plan Referrals: NONE,PCP [Primary Care Provider] - (3) Sepsis Qualifiers: Sepsis type: sepsis due to unspecified organism Qualified Code(s): A41.9 - Sepsis, unspecified organism (4) Afib Qualifiers: Atrial fibrillation type: chronic Qualified Code(s): I48.2 - Chronic atrial fibrillation
[2018-10-31] MEDS ORDERED: Nitroglycerin 0.4 MG TAB.SUBL SL PRN (14:05)
[2018-10-31] MEDS ORDERED: *HR* Metoprolol 5 MG/5 ML VIAL IVP ONE (14:48)
[2018-10-31] MEDS: Aspirin Enteric Coated 81 MG Tablet PO SCH (15:25)
[2018-10-31] MEDS ORDERED: Isovue-370 500 ML INFUS..BTL IV ONE (17:07)
[2018-11-01] MEDS: Piperacillin/Tazobactam 3.375 GM in 0.9 % Sodium Chloride Mini Bag 100 ML IVPB SCH ×3 (00:43→18:25)
[2018-11-01 01:00] LABS: INR 1.3; Prothrombin Time 14.9 Seconds (9.4-12.1)
[2018-11-01 06:51] LABS: INR 1.2
[2018-11-01 07:04] LABS: Albumin 3.9 g/dL (3.5-5.7); Albumin/Globulin Ratio 1.4 (1.1-2.2); Bilirubin,Direct 0.7 mg/dL (0.0-0.2); Bilirubin,Indirect 1.6 mg/dL (0.0-1.2); Bilirubin,Total 2.3 mg/dL (0.3-1.0); Globulin 2.8 g/dL (2.4-3.5); Total Protein 6.7 g/dL (6.4-8.9)
--- NOTE | 2018-11-01 08:06 | Anesthesia Evaluation PreOp ---
Date of Encounter: 11/01/18 Time of Encounter: 08:05 - Past History Planned Operation: ERCP Cardiac History: HTN, Hyperlipidemia, Arrhythmia (persistent atrial fibrillation), Other (elevated, plateau troponins in the setting of sepsis most consistent with demand ischemia) Pulmonary History: Former smoker [employer] History: CVA (no residual deficits; 2 years ago) Other Medical History: Hepatic (acute hepatitis), Other (sepsis) Anesthesia History: Problems (Severe PONV) Alcohol Use: none Drug use: none Medications and Allergies Aspirin [Lo-Dose Aspirin EC] 81 mg PO DAILY 10/30/18 [History] Atorvastatin [Lipitor] 80 mg PO HS 10/30/18 [History] Diltiazem [Cardizem] 30 mg PO TID 10/30/18 [History] Losartan [Cozaar] 25 mg PO DAILY 10/30/18 [History] Magnesium Oxide [Magnesium] 400 mg PO DAILY 10/30/18 [History] Metoprolol XL (24 HR) Succ [Toprol XL] 50 mg PO DAILY 10/30/18 [History] Nitrofurantoin (BID) [Macrobid] 100 mg PO DAILY 10/30/18 [History] Omeprazole [PriLOSEC] 20 mg PO DAILY 10/30/18 [History] Timolol Maleate 0.5% 1 drop BOTH EYES BID 10/30/18 [History] Warfarin [Coumadin] 3 mg PO DAILY 10/30/18 [History] Allergy/AdvReac Type Severity Reaction Status Date / Time Sulfa (Sulfonamide Allergy Itching Verified 10/30/18 02:41 Antibiotics) - Meds/Allergy Pre-op Review Medications Reviewed: Yes Allergies Reviewed: Yes Beta Blockers on Current Med List: Yes If Beta Blockers taken, Date/Time (Last Dose taken): 10-31-18 metoprolol xl 8:21 Anesthesia Results - Labs 10/31/18 06:00 10/31/18 06:00 - Imaging Additional studies: 10-30-18 TTE: Impressions: LVEF 50-55%. Indeterminate diastolic function. RV is normal in size. Function is low normal. Severe bi-atrial enlargement. Mild mitral regurgitation. Mild-moderate aortic regurgitation. Mild-moderate tricuspid regurgitation. Mild pulmonary hypertension. Proximal descending thoracic aorta not well visualized. Cardiology consult: Patient had elevated troponin 0.13 and 0.13. This is in the setting of sepsis, with fever secondary to acute hepatitis of unknown etiology Doubt ACS; presentation more consistent with demand ischemia given adynamic troponin elevation and lack of chest pain symptoms. ECG shows rate of 98, atrial fibrillation, without ST elevation, depression, no previous one to compare. Patient denies chest pain Patient had normal stress test at [facility] within the past 1-2 years. TTE shows preserved LVEF, 50-55% with normal wall motion. Continue conservative medical therapy. No further intervention is warranted from CV standpoint. Cardiology will sign-off; will coordinate outpatient follow-up Anesthesia Exam Last Vital Signs Temp 97.5 F L 11/01/18 07:21 Pulse 83 11/01/18 07:21 Resp 16 11/01/18 07:21 BP 143/85 11/01/18 07:21 Pulse Ox 95 11/01/18 07:21 Weight: 57 kg NPO (# of Hours): > 8 hrs - HEENT Pupil (Motor): Pupils equal, EOMI Mallampati: III Teeth: Poor dentition Oral Opening: Greater than 3 - WE[employer]GRAM[employer] LOC: Oriented - Cardiac Rhythm: Irregular - Pulmonary Breath Sounds: bilateral Clear Respiratory Effort: Symmetrical Anesthesia Assess/Plan ASA Score: 4 Level of consciousness: Cooperative Anesthetic Plan: General Monitoring Plan: Standard Monitors Recovery Plan: PACU
[2018-11-01] MEDS ORDERED: Metoprolol XL (24 HR) Succ 50 MG TAB.ER.24H PO SCH (09:00)
[2018-11-01] MEDS ORDERED: Nitrofurantoin (BID) 100 MG CAPSULE PO SCH (09:00)
[2018-11-01] MEDS ORDERED: *HR* Propofol 200 MG/20 ML VIAL IVP ONE (09:27)
[2018-11-01] MEDS ORDERED: Lidocaine -MPF 2% 2 ML VIAL ONE (09:28)
[2018-11-01] MEDS ORDERED: *HR* Succinylcholine 200 MG/10 ML VIAL IVP ONE (09:28)
[2018-11-01] MEDS ORDERED: Ondansetron 4 MG/2 ML VIAL ONE ×2 (09:28→11:18)
[2018-11-01] MEDS ORDERED: Lidocaine -MPF 4% 5 ML AMPUL ONE (09:28)
[2018-11-01] MEDS ORDERED: *HR* OxyCODONE Immed Rel 5 MG TABLET PO PRN (10:02)
[2018-11-01] MEDS ORDERED: Albuterol 2.5 MG/3 ML NEBULIZER IH ONE (10:02)
[2018-11-01] MEDS ORDERED: *HR* Promethazine 25 MG/ML VIAL IVP PRN (10:02)
[2018-11-01] MEDS ORDERED: *HR* Rocuronium Bromide 50 MG/5 ML VIAL ONE (10:06)
[2018-11-01] MEDS ORDERED: EPHEDrine 50 MG/ML VIAL ONE (11:07)
[2018-11-01] MEDS ORDERED: Dexamethasone 4 MG/ML VIAL ONE (11:20)
[2018-11-01] MEDS ORDERED: Indomethacin 50 MG SUPP.RECT RC ONE (12:06)
--- NOTE | 2018-11-01 12:34 | Internal Med Progress Note ---
Hospitalist Progress Note - Encounter Date of Encounter: 11/01/18 Time of Encounter: 12:28 - Subjective Interval History: Patient is back to the room after having ERCP procedure done. Family at bedside. Better shortness of breath. Trending down LFTs Denies fever chills headache chest pain shortness of breath abdominal pain diarrhea urinary complaint - Exam Vitals: Temp Pulse Resp BP Pulse Ox 98.3 F 89 18 143/85 93 11/01/18 12:00 11/01/18 12:20 11/01/18 12:20 11/01/18 12:20 11/01/18 12:20 Exam: General appearance: No acute distress, A&O x2. Nasal cannula oxygen of 2 L Head exam: Laceration on left side of head-healing Eye exam: EOMI, PERRLA ENT exam: Moist oral mucosa Neck nontender, supple Respiratory exam: Crepitation bilaterally-better Cardiovascular exam: Normal rate and irregular rhythm, no systolic murmur Abdominal exam: Soft, nontender, nondistended ,positive bowel sounds Extremities exam: No calf tenderness, no pedal edema Present: Skin- warm, dry, intact Neurological exam: No focal neurological deficit. Motor 5 x 5 in all 4 extremities. Normal speech . - Assessment and Plan (1) Acute hepatitis Current Visit: Yes Status: Acute Assessment and Plan: 83-year-old female presenting with fall. Labs that [facility] ED showed elevated LFTs with AST of 1083, ALC of 604, alkaline phosphatase of 332, total bilirubin of 2.3. Considering infectious or drug-related hepatitis. - Negative hepatic panel - Onboard GI specialist CT abdomen/pelvis showed multiple tiny hypodensities in liver could be due to arterioportal shuntsMRI was recommended to exclude metastatic lesions therefore MRI ordered but no report available. Avoid Tylenol MRI abdomen -Severe extrahepatic and moderate intrahepatic biliary ductal dilation due to choledocholithiasis. Multiple calculi are noted as described above. Edema surrounding the pancreas, which can be seen in the setting of pancreatitis. Lipase normal therefore less likely pancreatitis 11/01 2018 Trending down LFTs GI on board and had ERCP with complete removal of choledocholithiasis accomplished by biliary sphincterotomy and balloon extraction, the limitation of CBD, 2 temporary stent was placed into common bile duct. I talked to GI specialist about further management and he advised to hold warfarin for to 3 days at okay to restart bridging heparin therapy today at 6 PM and a stent removal in 2 months with the EGD scope. Monitor for any bleeding (2) Shortness of breath Current Visit: Yes Status: Acute Assessment and Plan: Most likely due to pulmonary congestion secondary to volume overload. No IV fluid. 1 dose Lasix was given yesterday with good diuresis. Raised d-dimer but CT angiogram with no pulmonary edema. Continue to monitor I and O's and diuresis as needed. Oxygen by nasal cannula. Echocardiogram EF 50-55% with severe biatrial enlargement. (3) Sepsis Current Visit: Yes Status: Acute Assessment and Plan: SIRS positive - R/O sepsis. Patient presented with pulse of 117, respiratory rate of 22, BP 155/83, and lactic acid 2.8. Patient had fever, chills at home Repeat lactic acid normal. White blood cell count was normal. Zosyn empiric antibiotic started will start de-escalate as no fever with normal white count and Blood culture with no growth yet (4) Afib Current Visit: Yes Status: Acute Assessment and Plan: Patient currently in A. fib, asymptomatic. - Continue home metoprolol, Cardizem. Heparin drip as bridging therapy starting tonight. Hold Coumadin for 3 days. Subtherapeutic INR. INR monitoring with the help of pharmacy. (5) NSTEMI (non-ST elevated myocardial infarction) Current Visit: Yes Status: Acute Assessment and Plan: She presents with elevated troponins negative EKG and A. fib. Considering N STEMI or possibility of demand ischemia secondary to sepsis. Consulted cardiology and does not appreciate cardiac event and signed off. (6) DVT prophylaxis Current Visit: Yes Status: Acute Assessment and Plan: On hold warfarin . Starting heparin drip tonight. Pharmacy consultation. SCDs - Time Spent with Patient Total time spent is greater than 50% in coordination of care (as documented) at patient's floor/unit and/or counseling patient: Greater than 35 minutes (He spent almost 40 minute inpatient care discussing plan of care with risk consultant, family, nursing staff) Internal Medicine: Result - Labs CBC & Chem 7: 10/31/18 06:00 10/31/18 06:00 Labs: Cardiac Enzymes 10/31/18 Range/Units 13:34 Troponin I 0.07 H* (< 0.04) ng/mL Liver Function 11/01/18 Range/Units 05:59 Total Bilirubin 2.3 H (0.3-1.0) mg/dL Direct Bilirubin 0.7 H (0.0-0.2) mg/dL AST 94 H (13-39) Units/L ALT 201 H (7-52) Units/L Alkaline Phosphatase 198 H (34-104) Units/L Albumin 3.9 (3.5-5.7) g/dL - ABG Interpretation ABG results: PT/INR, D-dimer PT 13.0 Seconds (9.4-12.1) H 11/01/18 05:59 D-Dimer 884 ng/mLFEU (0-500) H 10/31/18 13:34 - Impressions Impressions Chest X-Ray 10/31/18 12:38 IMPRESSION: 1. Findings typical of congestive heart failure; correlate with presenting history and findings 2. Calcific atherosclerosis aorta. 3. Cardiomegaly. D/ / Ryder Guerrero / Ryder Guerrero Interpreting Provider: Ryder Guerrero Chest CTA 10/31/18 17:07 IMPRESSION: No evidence of pulmonary embolism. Small effusions and dependent atelectasis. Scattered areas of ground-glass opacities are also noted, which may represent inflammatory process related to infection or possibly aspiration. Mild emphysema. D/ / Rob Cerda / Rob Cerda Interpreting Provider: Rob Cerda Consult Discharge Plan - Plan Referrals: NONE,PCP [Primary Care Provider] - (3) Sepsis Qualifiers: Sepsis type: sepsis due to unspecified organism Qualified Code(s): A41.9 - Sepsis, unspecified organism (4) Afib Qualifiers: Atrial fibrillation type: chronic Qualified Code(s): I48.2 - Chronic atrial fibrillation
--- NOTE | 2018-11-01 12:34 | Anesthesia Evaluation Post Op ---
Date of Encounter: 11/01/18 Time of Encounter: 12:34 - Vital Signs Vital Signs: Last Vital Signs Temp 98.3 F 11/01/18 12:28 Pulse 89 11/01/18 12:28 Resp 18 11/01/18 12:28 BP 146/95 11/01/18 12:28 Pulse Ox 95 11/01/18 12:28 - Lungs Lungs: Clear Ascult./Percussion - Airway Airway: Non-obstructed - Cardiovascular Regular Rate - Mental Status Mental Status: Alert & Oriented, Answers Appropriately - Pain Pain Scale: 1 - Nausea Vomiting Nausea Vomiting: Not Present - Hydration Hydration: NPO - Discharge PostOp Status: Transfer Patient to floor
[2018-11-01] MEDS: Metoprolol XL (24 HR) Succ 50 MG TAB.ER.24H PO SCH (13:10)
[2018-11-01] MEDS: Aspirin Enteric Coated 81 MG Tablet PO SCH (13:10)
[2018-11-01] MEDS: Magnesium Oxide 400 MG TABLET PO SCH (13:10)
[2018-11-01 14:26] LABS: Hematocrit 39.3 % (35.3-44.9); Mean Corpuscular HGB Conc 33.1 g/dL (31.6-35.5); Mean Corpuscular Volume 93.8 fL (83.0-100.0); Mean Platelet Volume 10.7 fL (9.4-12.4); Platelet Count 231 K/mcL (140-400); Red Blood Count 4.19 M/mcL (3.82-4.97); Red Cell Distribution Width 13.9 % (11.5-14.5)
[2018-11-01 14:35] LABS: Heparin anti-factor XA UFH 0.02 IU/mL (0.30-0.70)
[2018-11-01 14:36] LABS: INR 1.1
[2018-11-01] MEDS ORDERED: Furosemide 20 MG/2 ML VIAL IVP ONE (15:59)
[2018-11-01] MEDS ORDERED: *HR* Heparin 5,000 UNIT/ML VIAL IVP ONE (18:00)
[2018-11-01] MEDS ORDERED: *HR* Warfarin 3 MG TABLET PO ONE (18:00)
[2018-11-01] MEDS ORDERED: *HR* Heparin 5,000 UNIT/ML VIAL IVP PRN ×2 (18:00)
[2018-11-01] MEDS: Heparin 25,000 UNIT/500 ML D5W 25,000 UNIT/500 ML BAG IVC SCH (18:20)
[2018-11-02] MEDS: Piperacillin/Tazobactam 3.375 GM in 0.9 % Sodium Chloride Mini Bag 100 ML IVPB SCH ×4 (00:56→23:30)
[2018-11-02 07:55] LABS: Hematocrit 36.6 % (35.3-44.9); Hemoglobin 12.6 g/dL (11.5-15.4); Immature Granulocytes % 0.5 % (0-4); Lymphocytes # 0.9 K/mcL (0.6-4.6); Lymphocytes % 6.8 %; Mean Corpuscular HGB Conc 34.4 g/dL (31.6-35.5); Mean Corpuscular Hemoglobin 30.7 pg (28.0-33.3); Mean Corpuscular Volume 89.3 fL (83.0-100.0); Monocytes # 0.5 K/mcL (0.0-1.3); Neutrophils # 11.4 K/mcL (1.6-8.9); Platelet Count 293 K/mcL (140-400); Red Cell Distribution Width 13.5 % (11.5-14.5); Segmented Neutrophils % 88.7 %
[2018-11-02 08:03] LABS: Heparin anti-factor XA UFH 0.42 IU/mL (0.30-0.70); INR 1.1; Prothrombin Time 12.3 Seconds (9.4-12.1)
[2018-11-02 08:09] LABS: BUN/Creatinine Ratio 29 (6-26); Blood Urea Nitrogen 21 mg/dL (8-23); Calcium 9.5 mg/dL (8.6-10.3); Carbon Dioxide 25 mEq/L (23-29); Chloride 102 mEq/L (98-107); Glucose 172 mg/dL (70-105); Osmolality,Calculated 293 (280-300); Sodium 138 mEq/L (136-145); eGFR For Non-African Americans > 60 (> 60)
[2018-11-02] MEDS: Aspirin Enteric Coated 81 MG Tablet PO SCH (08:13)
[2018-11-02] MEDS: Magnesium Oxide 400 MG TABLET PO SCH (08:14)
[2018-11-02] MEDS: Metoprolol XL (24 HR) Succ 50 MG TAB.ER.24H PO SCH (08:14)
--- NOTE | 2018-11-02 14:51 | Internal Med Progress Note ---
Hospitalist Progress Note - Encounter Date of Encounter: 11/02/18 Time of Encounter: 14:47 - Subjective Interval History: Patient lying comfortably on bed with no acute distress. Daughter at bedside and had concern that patient has intermittent confusion and seeing the things on the wall but has not been agitated. Her mental status get clear as day pas sersby. Review the lab with low potassium, slight increased white count. Denies fever chills headache chest pain shortness of breath abdominal pain diarrhea urinary complaint - Exam Vitals: Temp Pulse Resp BP Pulse Ox 98.1 F 77 16 158/72 95 11/02/18 11:47 11/02/18 11:47 11/02/18 11:47 11/02/18 11:47 11/02/18 11:47 Exam: General appearance: No acute distress, alert awake oriented to self and person. Intermittently get confused while talking but does not make much sense but also has appropriate conversation in between. Patient has mild to moderate dementia history. Nasal cannula oxygen of 2 L. Family at bedside Head exam: Laceration on left side of head-healing Eye exam: EOMI, PERRLA ENT exam: Moist oral mucosa Neck nontender, supple Respiratory exam: Crepitation bilaterally-better Cardiovascular exam: Normal rate and irregular rhythm, no systolic murmur Abdominal exam: Soft, nontender, nondistended ,positive bowel sounds Extremities exam: No calf tenderness, no pedal edema Present: Skin- warm, dry, intact Neurological exam: No focal neurological deficit. Motor 5 x 5 in all 4 extremities. Normal speech and normal gait . - Assessment and Plan (1) Acute hepatitis Current Visit: Yes Status: Acute Assessment and Plan: 83-year-old female presenting with fall. Labs that [facility] ED showed elevated LFTs with AST of 1083, ALC of 604, alkaline phosphatase of 332, total bilirubin of 2.3. Considering infectious or drug-related hepatitis. - Negative hepatic panel - Onboard GI specialist CT abdomen/pelvis showed multiple tiny hypodensities in liver could be due to arterioportal shuntsMRI was recommended to exclude metastatic lesions therefore MRI ordered but no report available. Avoid Tylenol MRI abdomen -Severe extrahepatic and moderate intrahepatic biliary ductal dilation due to choledocholithiasis. Multiple calculi are noted as described above. Edema surrounding the pancreas, which can be seen in the setting of pancreatitis. Lipase normal therefore less likely pancreatitis 11/01 2018 Trending down LFTs GI on board and had ERCP with complete removal of choledocholithiasis accomplished by biliary sphincterotomy and balloon extraction, the limitation of CBD, 2 temporary stent was placed into common bile duct. I talked to GI specia list about further management and he advised to hold warfarin for to 3 days. Continue bridging heparin therapy now. stent removal in 2 months with the EGD scope. Monitor for any bleeding-stable hemoglobin (2) Shortness of breath Current Visit: Yes Status: Acute Assessment and Plan: Resolved now. Saturating more than 94% on room air. Most likely due to pulmonary congestion secondary to volume overload. No IV fluid. IV Lasix when necessary with good diuresis. Raised d-dimer but CT angiogram with no pulmonary edema. Continue to monitor I and O's and diuresis as needed. Oxygen by nasal cannula as needed. Echocardiogram EF 50-55% with severe biatrial enlargement. (3) Sepsis Current Visit: Yes Status: Acute Assessment and Plan: SIRS positive - R/O sepsis. Patient presented with pulse of 117, respiratory rate of 22, BP 155/83, and lactic acid 2.8. Patient had fever, chills at home Repeat lactic acid normal. White blood cell count is slight elevated today but no fever could be reactionary postprocedure response. will continue Zosyn . Urine analysis with urine reflux ordered. (4) Afib Current Visit: Yes Status: Acute Assessment and Plan: Patient currently in A. fib, asymptomatic. - Continue home metoprolol, Cardizem. Heparin drip as bridging therapy . Hold Coumadin for 3 days. Subtherapeutic INR. INR monitoring with the help of pharmacy. (5) NSTEMI (non-ST elevated myocardial infarction) Current Visit: Yes Status: Acute Assessment and Plan: She presents with elevated troponins negative EKG and A. fib. Considering NSTEMI or possibility of demand ischemia secondary to sepsis. Consulted cardiology and does not appreciate cardiac event and signed off. (6) Dementia Current Visit: Yes Status: Acute Assessment and Plan: Most likely vascular as patient had a stroke in the past. 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 No focal neurological deficit therefore no CT head ordered. I talked with her daughter in detail and explained could be possibility of sundowning especially elderly patient with underlying dementia with acute medical illness in new environment and lots of new faces-patient generally do not cope up with so many changes and get dis oriented. Will continue to monitor and treat accordingly. Daughter seems to understood. Slight elevated white count but thought to be reactionary postop response especially patient is on antibiotic but urine analysis also ordered to rule out UTI contributing to altered mental status. (7) Hypokalemia Current Visit: Yes Status: Acute Assessment and Plan: Replacement and monitoring (8) DVT prophylaxis Current Visit: Yes Status: Acute Assessment and Plan: On hold warfarin . Continue heparin drip . Pharmacy consultation. SCDs - Time Spent with Patient Total time spent is greater than 50% in coordination of care (as documented) at patient's floor/unit and/or counseling patient: 25 - 35 minutes Plan of Care Discussed with: family Internal Medicine: Result - Labs CBC & Chem 7: 11/02/18 07:26 11/02/18 07:26 Labs: Short CBC 11/02/18 Range/Units 07:26 WBC 12.9 H (4.3-11.1) K/mcL Hgb 12.6 (11.5-15.4) g/dL Hct 36.6 (35.3-44.9) % Plt Count 293 (140-400) K/mcL Neutrophils # 11.4 H (1.6-8.9) K/mcL BMP 11/02/18 07:26 Sodium 138 Potassium 3.0 L Chloride 102 Carbon Dioxide 25 BUN 21 Creatinine 0.72 Glucose 172 H Calcium 9.5 - ABG Interpretation ABG results: PT/INR, D-dimer PT 12.3 Seconds (9.4-12.1) H 11/02/18 07:26 D-Dimer 884 ng/mLFEU (0-500) H 10/31/18 13:34 - Impressions Impressions Cath/Invasive Procedure 11/01/18 10:50 IMPRESSION: Unremarkable ERCP images. Please refer to the procedure report for further details. D/ / 11/01/2018 14:43:23 Gianni Gresham MD / alyce Interpreting Provider: Gianni Gresham MD Consult Discharge Plan - Plan Referrals: NONE,PCP [Primary Care Provider] - (3) Sepsis Qualifiers: Sepsis type: sepsis due to unspecified organism Qualified Code(s): A41.9 - Sepsis, unspecified organism (4) Afib Qualifiers: Atrial fibrillation type: chronic Qualified Code(s): I48.2 - Chronic atrial fibrillation
[2018-11-02 15:38] LABS: Bilirubin,Urine Negative (Negative); Blood,Urine Negative (Negative); Clarity,Urine Clear (Clear); Color,Urine Yellow (Yellow); Glucose,Urine (UA) Normal (Normal); Ketones,Urine Trace mg/dL (Negative); Leukocyte Esterase,Urine Negative (Negative); Nitrite,Urine Negative (Negative); Protein,Urine Negative (Neg-Trace); Urobilinogen,Urine Normal (Normal)
[2018-11-03] MEDS: Heparin 25,000 UNIT/500 ML D5W 25,000 UNIT/500 ML BAG IVC SCH (00:53)
[2018-11-03 01:20] LABS: Basophils % 0.1 %; Eosinophils % 0.1 %; Hematocrit 31.7 % (35.3-44.9); Immature Granulocytes % 0.5 % (0-4); Lymphocytes # 1.6 K/mcL (0.6-4.6); Lymphocytes % 9.1 %; Mean Corpuscular HGB Conc 33.4 g/dL (31.6-35.5); Mean Corpuscular Hemoglobin 30.4 pg (28.0-33.3); Mean Corpuscular Volume 90.8 fL (83.0-100.0); Mean Platelet Volume 10.9 fL (9.4-12.4); Monocytes # 1.1 K/mcL (0.0-1.3); Monocytes % 6.4 %; Neutrophils # 14.7 K/mcL (1.6-8.9); Platelet Count 315 K/mcL (140-400); Red Blood Count 3.49 M/mcL (3.82-4.97); Red Cell Distribution Width 13.8 % (11.5-14.5); Segmented Neutrophils % 83.8 %
[2018-11-03 01:27] LABS: Hemoglobin 10.6 g/dL (11.5-15.4)
[2018-11-03 01:29] LABS: INR 1.1; Prothrombin Time 12.7 Seconds (9.4-12.1)
[2018-11-03 01:31] LABS: Alanine Aminotransferase 103 Units/L (7-52); Albumin 3.4 g/dL (3.5-5.7); Albumin/Globulin Ratio 1.4 (1.1-2.2); Alkaline Phosphatase 127 Units/L (34-104); Aspartate Amino Transferase 25 Units/L (13-39); BUN/Creatinine Ratio 52 (6-26); Bilirubin,Total 0.9 mg/dL (0.3-1.0); Blood Urea Nitrogen 43 mg/dL (8-23); Carbon Dioxide 28 mEq/L (23-29); Chloride 105 mEq/L (98-107); Globulin 2.5 g/dL (2.4-3.5); Glucose 143 mg/dL (70-105); Osmolality,Calculated 305 (280-300); Potassium 3.6 mEq/L (3.5-5.1); Sodium 141 mEq/L (136-145); Total Protein 5.9 g/dL (6.4-8.9); eGFR For Non-African Americans > 60 (> 60)
[2018-11-03] MEDS: Aspirin Enteric Coated 81 MG Tablet PO SCH (10:01)
[2018-11-03] MEDS: Metoprolol XL (24 HR) Succ 50 MG TAB.ER.24H PO SCH (10:01)
--- NOTE | 2018-11-03 10:01 | Internal Med Progress Note ---
Hospitalist Progress Note - Encounter Date of Encounter: 11/03/18 Time of Encounter: 09:57 - Subjective Interval History: Last night increased confusion and patient was wandering in hallway and hallucinating but CT head negative. Setter was placed in the room. Patient is appearing better and more pleasant today morning but is still has spells of confusion. Daughter at bedside. Review of the lab with trending of white count but no fever, trending down hemoglobin but no active bleeding visible -Hemoccult test ordered Blood culture done on 10/30/2018 with no growth yet Denies fever chills headache chest pain shortness of breath abdominal pain diarrhea urinary complaint - Exam Vitals: Temp Pulse Resp BP Pulse Ox 98.0 F 90 15 120/79 97 11/03/18 04:23 11/03/18 04:23 11/03/18 04:23 11/03/18 04:23 11/03/18 04:23 Exam: General appearance: No acute distress, alert awake oriented to self and person. Patient has mild to moderate dementia history. Family at bedside Head exam: Laceration on left side of head-healing Eye exam: EOMI, PERRLA ENT exam: Moist oral mucosa Neck nontender, supple Respiratory exam: Crepitation bilaterally-better Cardiovascular exam: Normal rate and irregular rhythm, no systolic murmur Abdominal exam: Soft, nontender, nondistended ,positive bowel sounds Extremities exam: No calf tenderness, no pedal edema Present: Skin- warm, dry, intact Neurological exam: No focal neurological deficit. Motor 5 x 5 in all 4 extremities. Normal speech and normal gait . - Assessment and Plan (1) Acute hepatitis Current Visit: Yes Status: Acute Assessment and Plan: 83-year-old female presenting with fall. Labs that [facility] ED showed elevated LFTs with AST of 1083, ALC of 604, alkaline phosphatase of 332, total bilirubin of 2.3. Considering infectious or drug-related hepatitis. - Negative hepatic panel - Onboard GI specialist CT abdomen/pelvis showed multiple tiny hypodensities in liver could be due to arterioportal shuntsMRI was recommended to exclude metastatic lesions therefore MRI ordered but no report available. Avoid Tylenol MRI abdomen -Severe extrahepatic and moderate intrahepatic biliary ductal dilation due to choledocholithiasis. Multiple calculi are noted as described above. Edema surrounding the pancreas, which can be seen in the setting of pancreatitis. Lipase normal therefore less likely pancreatitis 11/01 2018 Trending down LFTs GI on board and had ERCP with complete removal of choledocholithiasis accomplished by biliary sphincterotomy and balloon extraction, the limitation of CBD, 2 temporary stent was placed into common bile duct. I talked to GI sp ecialist about further management and he advised to hold warfarin for 3 days. Continue bridging heparin therapy now. stent removal in 2 months with the EGD scope. Monitor for any bleeding-stable hemoglobin Will resume warfarin this afternoon if okay with GI specialist while continuing heparin drip. Pharmacy on board for warfarin management (2) Shortness of breath Current Visit: Yes Status: Acute Assessment and Plan: Resolved now. Saturating more than 94% on room air. Most likely due to pulmonary congestion secondary to volume overload. No IV fluid. IV Lasix when necessary with good diuresis. Raised d-dimer but CT angiogram with no pulmonary edema. Continue to monitor I and O's and diuresis as needed. Oxygen by nasal cannula as needed. Echocardiogram EF 50-55% with severe biatrial enlargement. (3) Sepsis Current Visit: Yes Status: Acute Assessment and Plan: On admission SIRS positive - R/O sepsis. Patient presented with pulse of 117, respiratory rate of 22, BP 155/83, and lactic acid 2.8. Patient had fever, chills at home Repeat lactic acid normal. White blood cell count is further elevated today while on Zosyn but no fever . Blood culture 2 ordered, urinalysis with no acute finding. Added vancomycin for gram-positive coverage as patient recently had ERCP procedure done with stone removal . will continue Zosyn . Monitor culture report and plan for de- escalation of the antibiotic based on the clinical progress (4) Afib Current Visit: Yes Status: Acute Assessment and Plan: Patient currently in A. fib, asymptomatic. - Continue home metoprolol, Cardizem. Heparin drip as bridging therapy . Hold Coumadin for 3 days. Subtherapeutic INR. INR monitoring with the help of pharmacy. (5) NSTEMI (non-ST elevated myocardial infarction) Current Visit: Yes Status: Acute Assessment and Plan: She presents with elevated troponins negative EKG and A. fib. Considering NSTEMI or possibility of demand ischemia secondary to sepsis. Consulted cardiology and does not appreciate cardiac event and signed off. (6) Dementia Current Visit: Yes Status: Acute Assessment and Plan: Most likely vascular as patient had a stroke in the past. 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 No focal neurological deficit therefore no CT head ordered. I talked with her daughter in detail and explained could be possibility of sundowning especially elderly patient with underlying dementia with acute medical illness in new environment and lots of new faces-patient generally do not cope up with so many changes and get disoriented. Will continue to monitor and treat accordingly. November 02 2018-CT head for increased confusion no acute finding will also rule out infectious etiology ,as trending of white count therefore will rule out any source of infection. Blood culture ordered and added vancomycin along with continuation of Zosyn. Sitter as needed. (7) Hypokalemia Current Visit: Yes Status: Acute Assessment and Plan: Replacement and monitoring (8) DVT prophylaxis Current Visit: Yes Status: Acute Assessment and Plan: On hold warfarin . Continue heparin drip . Pharmacy consultation. SCDs - Time Spent with Patient Total time spent is greater than 50% in coordination of care (as documented) at patient's floor/unit and/or counseling patient: 25 - 35 minutes Plan of Care Discussed with: family Internal Medicine: Result - Labs CBC & Chem 7: 11/03/18 00:36 11/03/18 00:36 Labs: Short CBC 11/03/18 Range/Units 00:36 WBC 17.5 H (4.3-11.1) K/mcL Hgb 10.6 L D (11.5-15.4) g/dL Hct 31.7 L (35.3-44.9) % Plt Count 315 (140-400) K/mcL Neutrophils # 14.7 H (1.6-8.9) K/mcL BMP 11/03/18 00:36 Sodium 141 Potassium 3.6 Chloride 105 Carbon Dioxide 28 BUN 43 H Creatinine 0.82 Glucose 143 H Calcium 9.0 Liver Function 11/03/18 Range/Units 00:36 Total Bilirubin 0.9 (0.3-1.0) mg/dL AST 25 (13-39) Units/L ALT 103 H (7-52) Units/L Alkaline Phosphatase 127 H (34-104) Units/L Albumin 3.4 L (3.5-5.7) g/dL Urine 11/02/18 Range/Units 11:09 Urine Color Yellow (Yellow) Urine Clarity Clear (Clear) Urine pH 6.0 (5.0-8.0) pH Units Ur Specific Grants 1.030 H (1.010-1.025) Urine Protein Negative (Neg-Trace) mg/dL Urine Glucose (UA) Normal (Normal) mg/dL - ABG Interpretation ABG results: PT/INR, D-dimer PT 12.7 Seconds (9.4-12.1) H 11/03/18 00:36 D-Dimer 884 ng/mLFEU (0-500) H 10/31/18 13:34 - Impressions Impressions Head CT 11/02/18 18:01 IMPRESSION: 1. No acute intracranial abnormality. 2. Stable encephalomalacia involving the right insula and subinsular white matter in keeping with sequela of remote infarct. 3. Mild chronic white matter microvascular ischemic changes. D/ / Rob Mcclellan / Rob Mcclellan Interpreting Provider: Rob Mcclellan Consult Discharge Plan - Plan Referrals: NONE,PCP [Primary Care Provider] - (3) Sepsis Qualifiers: Sepsis type: sepsis due to unspecified organism Qualified Code(s): A41.9 - Sepsis, unspecified organism (4) Afib Qualifiers: Atrial fibrillation type: chronic Qualified Code(s): I48.2 - Chronic atrial fibrillation
[2018-11-03] MEDS: Magnesium Oxide 400 MG TABLET PO SCH (10:02)
[2018-11-03] MEDS: Piperacillin/Tazobactam 3.375 GM in 0.9 % Sodium Chloride Mini Bag 100 ML IVPB SCH ×2 (10:06→17:51)
--- NOTE | 2018-11-03 14:35 | Electrocardiograph Report ---
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
[2018-11-03] MEDS ORDERED: Warfarin perPT PO PRN (16:28)
[2018-11-03] MEDS ORDERED: *HR* Warfarin 3 MG TABLET PO ONE (18:00)
[2018-11-04] MEDS: Piperacillin/Tazobactam 3.375 GM in 0.9 % Sodium Chloride Mini Bag 100 ML IVPB SCH ×2 (01:00→09:10)
[2018-11-04 05:46] LABS: INR 1.2; Prothrombin Time 13.1 Seconds (9.4-12.1)
[2018-11-04 08:40] LABS: Basophils % 0.3 %; Eosinophils # 0.1 K/mcL (0.0-0.6); Hemoglobin 8.8 g/dL (11.5-15.4); Immature Granulocytes % 0.8 % (0-4); Lymphocytes # 2.5 K/mcL (0.6-4.6); Lymphocytes % 20.1 %; Mean Corpuscular HGB Conc 33.8 g/dL (31.6-35.5); Mean Corpuscular Hemoglobin 30.9 pg (28.0-33.3); Mean Corpuscular Volume 91.2 fL (83.0-100.0); Mean Platelet Volume 10.3 fL (9.4-12.4); Monocytes # 0.9 K/mcL (0.0-1.3); Monocytes % 7.1 %; Neutrophils # 8.7 K/mcL (1.6-8.9); Platelet Count 294 K/mcL (140-400); Red Blood Count 2.85 M/mcL (3.82-4.97); Red Cell Distribution Width 14.3 % (11.5-14.5); Segmented Neutrophils % 70.7 %
[2018-11-04] MEDS ORDERED: Warfarin perPT PO PRN (09:00)
[2018-11-04 09:02] LABS: BUN/Creatinine Ratio 48 (6-26); Blood Urea Nitrogen 32 mg/dL (8-23); Calcium 8.6 mg/dL (8.6-10.3); Carbon Dioxide 24 mEq/L (23-29); Chloride 110 mEq/L (98-107); Glucose 118 mg/dL (70-105); Osmolality,Calculated 308 (280-300); Potassium 3.4 mEq/L (3.5-5.1); Sodium 145 mEq/L (136-145); eGFR For Non-African Americans > 60 (> 60)
[2018-11-04] MEDS: Magnesium Oxide 400 MG TABLET PO SCH (09:10)
[2018-11-04] MEDS: Aspirin Enteric Coated 81 MG Tablet PO SCH (09:10)
[2018-11-04] MEDS: Metoprolol XL (24 HR) Succ 50 MG TAB.ER.24H PO SCH (09:10)
--- NOTE | 2018-11-04 09:35 | Internal Med Progress Note ---
Hospitalist Progress Note - Encounter Date of Encounter: 11/04/18 Time of Encounter: 09:30 - Exam Vitals: Temp Pulse Resp BP Pulse Ox 98.0 F 87 16 146/73 96 11/04/18 08:10 11/04/18 08:10 11/04/18 08:10 11/04/18 08:10 11/04/18 08:10 Exam: General appearance: No acute distress, alert awake oriented to self and person. Patient has mild to moderate dementia history. Family at bedside Head exam: Laceration on left side of head-healing Eye exam: EOMI, PERRLA ENT exam: Moist oral mucosa Neck nontender, supple Respiratory exam: Crepitation bilaterally-better Cardiovascular exam: Normal rate and irregular rhythm, no systolic murmur Abdominal exam: Soft, nontender, nondistended ,positive bowel sounds Extremities exam: No calf tenderness, no pedal edema Present: Skin- warm, dry, intact Neurological exam: No focal neurological deficit. Motor 5 x 5 in all 4 extremities. Normal speech and normal gait . - Assessment and Plan (1) Acute hepatitis Current Visit: Yes Status: Acute Assessment and Plan: 83-year-old female presenting with fall. Labs that [facility] ED showed elevated LFTs with AST of 1083, ALC of 604, alkaline phosphatase of 332, total bilirubin of 2.3. Considering infectious or drug-related hepatitis. - Negative hepatic panel - Onboard GI specialist CT abdomen/pelvis showed multiple tiny hypodensities in liver could be due to arterioportal shuntsMRI was recommended to exclude metastatic lesions therefore MRI ordered but no report available. Avoid Tylenol MRI abdomen -Severe extrahepatic and moderate intrahepatic biliary ductal dilation due to choledocholithiasis. Multiple calculi are noted as described above. Edema surrounding the pancreas, which can be seen in the setting of pancreatitis. Lipase normal therefore less likely pancreatitis 11/01 2018 Trending down LFTs GI on board and had ERCP with complete removal of choledocholithiasis accomplished by biliary sphincterotomy and balloon extraction, the limitation of CBD, 2 temporary stent was placed into common bile duct. I talked to GI specialist about further management and he advised to hold warfarin for 3 days. Continue bridging heparin therapy now. stent removal in 2 months with the EGD scope. Monitor for any bleeding-stable hemoglobin Will resume warfarin this afternoon if okay with GI specialist while continuing heparin drip. Pharmacy on board for warfarin management (2) Sepsis Current Visit: Yes Status: Acute Assessment and Plan: On admission SIRS positive - R/O sepsis. Patient presented with pulse of 117, respiratory rate of 22, BP 155/83, and lactic acid 2.8. Patient had fever, chills at home Repeat lactic acid normal. White blood cell count is further elevated today while on Zosyn but no fever . Blood culture 2 ordered, urinalysis with no acute finding. Added vancomycin for gram-positive coverage as patient recently had ERCP procedure done with stone removal . will continue Zosyn . Monitor culture report and plan for de- escalation of the antibiotic based on the clinical progress (3) DVT prophylaxis Current Visit: Yes Status: Acute Assessment and Plan: On hold warfarin . Continue heparin drip . Pharmacy consultation. SCDs (4) Afib Current Visit: Yes Status: Acute Assessment and Plan: Patient currently in A. fib, asymptomatic. - Continue home metoprolol, Cardizem. Heparin drip as bridging therapy . Hold Coumadin for 3 days. Subtherapeutic INR. INR monitoring with the help of pharmacy. (5) NSTEMI (non-ST elevated myocardial infarction) Current Visit: Yes Status: Acute Assessment and Plan: She presents with elevated troponins negative EKG and A. fib. Considering NSTEMI or possibility of demand ischemia secondary to sepsis. Consulted cardiology and does not appreciate cardiac event and signed off. (6) Shortness of breath Current Visit: Yes Status: Acute Assessment and Plan: Resolved now. Saturating more than 94% on room air. Most likely due to pulmonary congestion secondary to volume overload. No IV fluid. IV Lasix when necessary with good diuresis. Raised d-dimer but CT angiogram with no pulmonary edema. Continue to monitor I and O's and diuresis as needed. Oxygen by nasal cannula as needed. Echocardiogram EF 50-55% with severe biatrial enlargement. (7) Dementia Current Visit: Yes Status: Acute Assessment and Plan: Most likely vascular as patient had a stroke in the past. 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 No focal neurological deficit therefore no CT head ordered. I talked with her daughter in detail and explained could be possibility of sundowning especially elderly patient with underlying dementia with acute medical illness in new environment and lots of new faces-patient generally do not cope up with so many changes and get disoriented. Will continue to monitor and treat accordingly. November 02 2018-CT head for increased confusion no acute finding will also rule out infectious etiology ,as trending of white count therefore will rule out any source of infection. Blood culture ordered and added vancomycin along with continuation of Zosyn. Sitter as needed. (8) Hypokalemia Current Visit: Yes Status: Acute Assessment and Plan: Replacement and monitoring - Time Spent with Patient Total time spent is greater than 50% in coordination of care (as documented) at patient's floor/unit and/or counseling patient: Internal Medicine: Result - Labs CBC & Chem 7: 11/04/18 08:13 11/04/18 08:13 Labs: Short CBC 11/04/18 Range/Units 08:13 WBC 12.3 H (4.3-11.1) K/mcL Hgb 8.8 L D (11.5-15.4) g/dL Hct 26.0 L (35.3-44.9) % Plt Count 294 (140-400) K/mcL Neutrophils # 8.7 (1.6-8.9) K/mcL BMP 11/04/18 08:13 Sodium 145 Potassium 3.4 L Chloride 110 H Carbon Dioxide 24 BUN 32 H Creatinine 0.67 Glucose 118 H Calcium 8.6 - ABG Interpretation ABG results: PT/INR, D-dimer PT 13.1 Seconds (9.4-12.1) H 11/04/18 04:33 D-Dimer 884 ng/mLFEU (0-500) H 10/31/18 13:34 - Impressions Impressions Chest X-Ray 11/03/18 07:27 IMPRESSION: Normal chest x-ray D/ / Umair Avitia MD / Umair Avitia MD Interpreting Provider: Umair Avitia MD Consult Discharge Plan - Plan Referrals: NONE,PCP [Primary Care Provider] - (2) Sepsis Qualifiers: Sepsis type: sepsis due to unspecified organism Qualified Code(s): A41.9 - Sepsis, unspecified organism (4) Afib Qualifiers: Atrial fibrillation type: chronic Qualified Code(s): I48.2 - Chronic atrial fibrillation
--- NOTE | 2018-11-04 10:21 | Discharge Summary ---
Orders not resulted at time of discharge: Pending orders 10/30/18 14:55 Bedside Spirometry Evaluation [EVAL] Routine 10/31/18 12:29 Bedside Spirometry Evaluation [EVAL] Routine 10/31/18 19:31 Bedside Spirometry Evaluation [EVAL] Routine 11/03/18 10:45 Culture,Blood [BC] Stat 11/03/18 15:20 Urinalysis Reflex Cult & Micro [URIN] Routine 11/05/18 04:00 Basic Metabolic Panel AM 0400 CBC [Complete Blood Count] [HEME] AM 0400 Magnesium AM 0400 PT/INR [Prothrombin Time INR] [COAG] AM 0400 Phosphorous AM 0400 11/05/18 21:00 Vancomycin,Trough Timed 11/06/18 04:00 Basic Metabolic Panel AM 0400 CBC [Complete Blood Count] [HEME] AM 0400 Magnesium AM 0400 PT/INR [Prothrombin Time INR] [COAG] AM 0400 Phosphorous AM 0400 11/07/18 04:00 Basic Metabolic Panel AM 0400 CBC [Complete Blood Count] [HEME] AM 0400 Magnesium AM 0400 PT/INR [Prothrombin Time INR] [COAG] AM 0400 Phosphorous AM 0400 11/08/18 04:00 Basic Metabolic Panel AM 0400 CBC [Complete Blood Count] [HEME] AM 0400 Magnesium AM 0400 PT/INR [Prothrombin Time INR] [COAG] AM 0400 Phosphorous AM 0400 11/09/18 04:00 Basic Metabolic Panel AM 0400 CBC [Complete Blood Count] [HEME] AM 0400 Magnesium AM 0400 Phosphorous AM 0400 11/10/18 04:00 Basic Metabolic Panel AM 0400 CBC [Complete Blood Count] [HEME] AM 0400 Magnesium AM 0400 Phosphorous AM 0400 Date of Encounter: 11/04/18 Time of Encounter: 10:20 - Discharge Diagnosis (1) Acute hepatitis Priority: Primary Status: Acute Assessment and Plan: 83 year old female presenting to [facility] ED with fall. She was changing her shoes yesterday morning when she fell off her breathing or pending side of her head [facility]. She did not lose consciousness or experience confusion. Patient endorses fever, chills/night sweats, vomiting 3 over the previous 2 days. Patient denies chest pain, palpitations, shortness of breath, pleuritic chest pain, abdominal pain, changes in stooling, changes in urination. At [facility] ED CBC showed elevated AST of 1083, elevated BALT of 604, alkaline phosphatase of 332, total bilirubin of 2.3. CT abdomen/pelvis showed multiple tiny hypodensities in liver could be due to arterioportal shuntsMRI was recommended to exclude metastatic lesions therefore MRI ordered but no report available. Avoid Tylenol She was admitted with transaminitis and acute hepatic failure. MRI abdomen - Severe extrahepatic and moderate intrahepatic biliary ductal dilation due to choledocholithiasis. GI was consulted and she had an ERCP with complete removal of choledocholithiasis accomplished by biliary sphincterotomy and balloon extraction, the limitation of CBD, 2 temporary stent was placed into common bile duct. Warfarin was held for 3 days post procedure. She was safely resumed on warfarin 3 days post procedure and was discharged in a stable condition. 35minutes was spent discharging this patient (2) Sepsis Priority: Primary Status: Acute Qualifiers: Sepsis type: sepsis due to unspecified organism Qualified Code(s): A41.9 - Sepsis, unspecified organism (3) DVT prophylaxis Priority: Primary Status: Acute (4) Afib Priority: Primary Status: Acute Qualifiers: Atrial fibrillation type: chronic Qualified Code(s): I48.2 - Chronic atrial fibrillation (5) NSTEMI (non-ST elevated myocardial infarction) Priority: Primary Status: Acute (6) Shortness of breath Priority: Primary Status: Acute (7) Dementia Priority: Primary Status: Acute Qualifiers: Qualified Code(s): F03.90 - Unspecified dementia without behavioral disturbance (8) Hypokalemia Priority: Primary Status: Acute Hospital course: Ms. Tomlin is a 83 year old female - Time Spent with Patient Total time spent providing and/or coordinating discharge services: - Discharge Medications Home Medications: Aspirin [Lo-Dose Aspirin EC] 81 mg PO DAILY 10/30/18 [History] Atorvastatin [Lipitor] 80 mg PO HS 10/30/18 [History] Diltiazem [Cardizem] 30 mg PO TID 10/30/18 [History] Losartan [Cozaar] 25 mg PO DAILY 10/30/18 [History] Magnesium Oxide [Magnesium] 400 mg PO DAILY 10/30/18 [History] Metoprolol XL (24 HR) Succ [Toprol Xl] 50 mg PO DAILY 10/30/18 [History] Nitrofurantoin (BID) [Macrobid] 100 mg PO DAILY 10/30/18 [History] Omeprazole [PriLOSEC] 20 mg PO DAILY 10/30/18 [History] Timolol Maleate 0.5% 1 drop BOTH EYES BID 10/30/18 [History] Warfarin [Coumadin] 3 mg PO DAILY 10/30/18 [History] Allergies/Adverse Reactions: Allergy/AdvReac Type Severity Reaction Status Date / Time Sulfa (Sulfonamide Allergy Itching Verified 10/30/18 02:41 Antibiotics) Date of admission: 10/31/18 08:23 Primary care physician: PCP NONE Consults: 10/30/18 05:04 Consult to Gastroenterology [CONS] Routine Consulting Provider: Gastroenterology Petra Reason for Consult: Elevated liver enzymes Time Notified: 05:05 Call Completed: No 10/30/18 05:49 Consult to Cardiology [CONS] Routine Comment: Consulting Provider: Cardiology Petra Reason for Consult: afib + elevated trops Time Notified: 05:50 Call Completed: No 11/04/18 10:10 Consult to Physical Therapy [CONS] Routine Comment: Evaluate, develop and implement POC Reason for Consult: deconditioning Does patient have active BEDREST order?: No Is patient medically & hemodynamically stable?: Yes Patient assessed for mobility or mobilized this visit?: No - Constitutional Vitals: Temp Pulse Resp BP Pulse Ox 98.0 F 87 16 146/73 96 11/04/18 08:10 11/04/18 08:10 11/04/18 08:10 11/04/18 08:10 11/04/18 08:10 General appearance: Present: cooperative, A&O X 3, no acute distress, answers questions appropriately Exam: General appearance: No acute distress, alert awake oriented to self and person. Patient has mild to moderate dementia history. Family at bedside Head exam: Laceration on left side of head-healing Eye exam: EOMI, PERRLA ENT exam: Moist oral mucosa Neck nontender, supple Respiratory exam: Crepitation bilaterally-better Cardiovascular exam: Normal rate and irregular rhythm, no systolic murmur Abdominal exam: Soft, nontender, nondistended ,positive bowel sounds Extremities exam: No calf tenderness, no pedal edema Present: Skin- warm, dry, intact Neurological exam: No focal neurological deficit. Motor 5 x 5 in all 4 extremities. Normal speech and normal gait . - Patient Status Disposition: Home, Self-Care - Discharge Instructions Follow Up With: Lashell Graf, HVAC PROJECT ENGINEER [Advanced Practice Nurse] - 11/07/18 11:00 am ([facility]- Please follow up as scheduled. Please bring your Photo ID, insurance card, discharge paper work, a list or the bottles of all your current medications and your copay if you would have one. Thank you!) Karen Victoria DO [Non-Partnered Physician] - 11/17/18 10:00 am (Please bring your photo ID, insurance card, Discharge folder with your paper work and any copays you may have.)
[2018-11-04 11:00] VITALS: BP 125/80
[2018-11-04] MEDS ORDERED: Aminoglycoside Consult 1 EACH MC ONE (14:15)
[2018-11-04] MEDS ORDERED: *HR* Warfarin 3 MG TABLET PO ONE (18:00)
== END 2018-11-04 14:16 | disposition home or self-care (01) | DRG 871 ==
LOC: 2ANU
PROVIDERS: ADMIT Internal Medicine Cardiovascular Disease; ATTEND Internal Medicine Cardiovascular Disease